=== PATIENT | male | born 1990 | race Two or more races ===

== ENCOUNTER 2023-02-23 06:40 | Emergency (ER) | payer OTHER ==
[~2023-02-23] VITALS: Ht 175.3 cm; Wt 77.1 kg
[2023-02-23] MEDS ORDERED: GUAI-671 PO (07:07)
[2023-02-23 07:15] VITALS: BP 121/85; TEMP 99.1; O2SAT 99
== END 2023-02-23 07:15 | disposition home or self-care (01) ==
LOC: ER 06:42
DX: J20.9 Acute bronchitis, unspecified (principal)